=== PATIENT | female | born 1960 | race African-American/Black ===

== ENCOUNTER 2022-05-29 14:29 | Emergency (ER) | payer OTHER, SELFPAY ==
--- NOTE | ~2022-05-29 | CT_ITS ---
EXAMINATION: CT HEAD WITHOUT CONTRAST (STROKE PROTOCOL) CLINICAL INFORMATION: Stroke protocol. Aphasia, altered mental status. COMPARISON: CT had noncontrast 04/24/2013 TECHNIQUE: Contiguous axial imaging was performed from the skull base to vertex without intravenous administration of contrast. Additional 2-D coronal and sagittal reformatted images are generated on the CT workstation and uploaded to PACS. This CT examination was performed using dose optimization techniques as appropriate, variously including the following: *Automated exposure control *Adjustment of mA and/or kV according to patient size (this includes techniques or standardized protocols for targeted exams where dose is matched to indication/reason for exam; i.e. extremities or head) *Use of iterative reconstruction technique DLP: 1000 445 mGy-cm FINDINGS: There is moderate left subdural hematoma with mixed acute and older blood products overlying the left cerebral hemisphere. The hematoma measured on coronal images is approximately 1.6 cm in thickness. There is compression of the left lateral ventricle with subfalcine herniation of approximately 1.2 cm. There is no hydrocephalus. There is also areas of acute hemorrhage at the right vertex adjacent to the falx, along the left tentorium, and along the floor left middle cranial fossa. No intraventricular hemorrhage or definite intraparenchymal hemorrhage. The dorado-white matter differentiation appears normal. There is no visible acute territorial infarct or mass lesion. There is enlarged empty sella. No sellar or suprasellar mass. No erosion or hyperostosis. The calvarium appears intact. There is no pneumocephalus or orbital emphysema. The visualized sinuses and middle ears and mastoid air cells show no significant mucosal thickening. There are no air-fluid levels. Results are called and discussed with Dr. Jami Casey in the emergency department at [address]/CT head for stroke IMPRESSION: 1. Moderate left subdural hematoma with mixed acute and older blood products, 1.6 cm thickness. 2. Mass effect with subfalcine herniation of approximately 1.2 cm. No hydrocephalus. 3. Additional areas of acute hemorrhage right vertex, along the left tentorium, and along the floor left middle cranial fossa.
--- NOTE | 2022-05-29 14:33 | ECG_ITS ---
Test Reason : STROKE Blood Pressure : / mmHG Vent. Rate : 080 BPM Atrial Rate : 080 BPM P-R Int : 156 ms QRS Dur : 072 ms QT Int : 392 ms P-R-T Axes : 064 008 041 degrees QTc Int : 452 ms Normal sinus rhythm Possible Left atrial enlargement Borderline ECG When compared with ECG of 26-APR-2013 09:39, No significant change was found Referred By: Jami Casey Electronically Signed By:MIRZA CAMARGO
--- NOTE | 2022-05-29 14:38 | ED.AMS ---
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 and appeared to be confused, fast ED score by EMS was 1 and on my evaluation here in the emergency room there is a possibility of maybe some aphasia but otherwise NIH is negative. Related Data Allergies Allergy/AdvReac Type Severity Reaction Status Date / Time No Known Allergies Allergy Unverified 01/18/20 16:24 [No Known Allergies*] Review of Systems Review of Systems: Pertinent positives and negatives as stated in HPI PMFSH Past Medical History Source: nursing notes reviewed Social History Social History Alcohol intake: never Smoked in Last 30 Days: No Use of substances other than those prescribed or required for medical reasons: No Advance Directives: No Advance Directives Information Provided: No Physical Exam ED Vital Signs: Vital Signs - 24 hr 05/29/22 14:51 05/29/22 15:05 Temperature 99.2 F Pulse Rate 80 83 Respiratory Rate 18 15 Blood Pressure 173/73 H 128/72 Pulse Oximetry 94 95 Oxygen Delivery Method Room Air Room Air BMI result Body Mass Index 32.6 VITAL SIGNS: Reviewed. GENERAL: Well developed, well nourished, in no acute distress. HEAD: Normocephalic/atraumatic EYES: PERRLA, EOMI EARS: Ext canals without abnormality OROPHARYNX: no oral lesions noted, posterior pharynx clear LUNGS: Normal breath sounds. No adventitious sounds or accessory muscle use. CARDIOVASCULAR: Regular rate and rhythm without noted murmurs, no JVD or lower extremity edema. ABDOMEN: Soft, non-tender, non-distended with bowel sounds. MUSCULOSKELETAL: No tenderness, deformities, or effusions noted on gross inspection. EXTREMITIES: No cyanosis, clubbing or edema. SKIN: Inspection of the skin reveals no rashes NEUROLOGIC: Alert and oriented x 4. Strength and sensation to light touch were grossly intact x 4. NIH Stroke Scale Internal: Initial- Upon Arrival Level of Consciousness: Alert Level of Consciousness Questions: Answers both questions correctly Level of Consciousness Commands: Performs both tasks correctly Best Gaze: Normal Visual: No visual loss Facial Palsy: Normal Motor Arm (Right): No drift Motor Arm (Left): No drift Motor Leg (Right): No drift Motor Leg (Left): No drift Limb Ataxia: Absent Sensory: Normal Best Language: Mild to moderate aphasia Dysarthia: Normal Extinction and Inattention: No abnormality Score: 1 Medical Decision Making Medical Decision Making [facility] Narrative: 62-year-old female with presentation that appears to be somewhat delirium in nature but unclear whether not a component of aphasia, so decision made to perform CT of the head. 1446: I was called over to the CT scanner and patient has obvious acute on chronic subdural with midline shift likely explaining her current presentation. [facility] is called and images pushed over via [facility]. 1500: On re-evaluation, patient has noted left lid droop as well as Flattening over the left nasal labial fold and slight left down turning of mouth corner. Blood pressure is under control at this time and patient will not be placed on blood pressure medication drip. Differential Diagnosis Differential Diagnoses: The differential diagnosis associated with the presentation includes Please see the discussion above Consult Healthcare Provider Management of the patient was discussed with: [facility] 1448: Spoke with [facility] and recommended that ICU and/or neuro surgery should be contacted regarding these findings. 1450: Rads report acute on chronic subdural with 10-12mm midline shift, acute left tentorium bleeding, right falc bleeding 1518: Gal Palumbo recommend Ed to ED with suspect to OR, Q1H neuro checks. I did inform that patient now has LEFT lid droop and left mouth corner droop 1520: Dr. Bojorquez with, ED physician is accepting transfer for further evaluation of subdural bleeding. Lab Data [facility] Lab Attestation statement: I reviewed the patient's lab results. Please see discussion above 05/29/22 14:59 05/29/22 14:59 Labs: Lab Results 05/29/22 05/29/22 05/29/22 Range/Units 14:33 14:51 14:59 WBC 4.7 L (4.8-10.8) X10*3/uL RBC 4.96 (4.20-5.50) X10*6/uL Hgb 13.5 (12.0-16.0) g/dl Hct 41.1 (37.0-47.0) % MCV 82.9 (80.0-98.0) fL MCH 27.2 (27.0-33.0) pg MCHC 32.8 (31.0-35.0) g/dl RDW 14.8 (11.0-16.0) % Plt Count 189 (160-400) X10*3/uL MPV 11.6 (9.4-12.3) fL Immature Gran % (Auto) 0.4 (0.0-0.4) % Neut % (Auto) 72.6 (45-73) % Lymph % (Auto) 20.4 (20-40) % Riley % (Auto) 6.0 (2-11) % Eos % (Auto) 0.4 (0-4) % Baso % (Auto) 0.2 (0-2) % Lymph # (Auto) 1.0 L (1.2-4.9) X10*3/uL Riley # (Auto) 0.3 (0.1-1.2) X10*3/uL Eos # (Auto) 0.0 (0.0-0.4) X10*3/uL Baso # (Auto) 0.0 (0.0-0.2) X10*3/uL Abs Immat Gran (auto) 0.02 (0.00-0.03) X10*3/uL Absolute Neuts (auto) 3.4 (2.0-8.3) x10*3/uL Absolute Nucleated RBC 0.000 (0.0-0.012) X10*3/uL Nucleated RBC % (auto) 0.0 (0.0-0.2) /100WBC PT (10.0-13.1) SEC Whole Blood PT 11.8 (11.1-13.5) sec INR (0.9-1.1) Whole Blood INR 1.0 (0.9-1.1) APTT (26.0-36.4) SEC POC Glucose 144 H (60-115) mg/dL 05/29/22 Range/Units 14:59 WBC (4.8-10.8) X10*3/uL RBC (4.20-5.50) X10*6/uL Hgb (12.0-16.0) g/dl Hct (37.0-47.0) % MCV (80.0-98.0) fL MCH (27.0-33.0) pg MCHC (31.0-35.0) g/dl RDW (11.0-16.0) % Plt Count (160-400) X10*3/uL MPV (9.4-12.3) fL Immature Gran % (Auto) (0.0-0.4) % Neut % (Auto) (45-73) % Lymph % (Auto) (20-40) % Riley % (Auto) (2-11) % Eos % (Auto) (0-4) % Baso % (Auto) (0-2) % Lymph # (Auto) (1.2-4.9) X10*3/uL Riley # (Auto) (0.1-1.2) X10*3/uL Eos # (Auto) (0.0-0.4) X10*3/uL Baso # (Auto) (0.0-0.2) X10*3/uL Abs Immat Gran (auto) (0.00-0.03) X10*3/uL Absolute Neuts (auto) (2.0-8.3) x10*3/uL Absolute Nucleated RBC (0.0-0.012) X10*3/uL Nucleated RBC % (auto) (0.0-0.2) /100WBC PT 11.8 (10.0-13.1) SEC Whole Blood PT (11.1-13.5) sec INR 1.0 (0.9-1.1) Whole Blood INR (0.9-1.1) APTT 33.1 (26.0-36.4) SEC POC Glucose (60-115) mg/dL Independent Interpretation I performed an independent interpretation of an: EKG Interpretation: Review was sinus rhythm, HR-80, AK/QRS/QTC is within normal limits, no STEMI Radiology Impression Radiologist Impression: For interpretation is in agreement with radiology's impression of imaging study. Chronic Conditions Patient?s care impacted by: Diabetes Critical Care Time Critical Care Time Critical Care Time: Yes Total Critical Care Time: 60 Attestation: I personally attest to this time spent taking care of the patient. Discharge Plan Discharge Clinical Impression: Chronic subdural hematoma, Nontraumatic acute subdural hemorrhage Patient Disposition: Xfer [facility] Transfer Details: Acute on chronic subdural bleed with midline shift 10-12 mm
--- NOTE | 2022-05-29 14:45 | PC.NURSE ---
attempt to call - cell phone is off
--- NOTE | 2022-05-29 14:49 | MHC.EDTECH ---
@[phone] called [facility] transfer line per request of Dr. Casey. Gave patient demographics to the person on the phone. The individual then requested to speak with Dr. Casey. Dr. Casey took the call right away.
[2022-05-29 14:51] VITALS: BP 170/110; BP 173/73; PULSE 70; PULSE 80; RESP 18; O2SAT 94; O2SAT 97; BMI 32.6
[2022-05-29 15:04] LABS: Glucose, Whole Blood 144 mg/dL (60-115)
[2022-05-29 15:05] VITALS: BP 128/72; PULSE 83; RESP 15; TEMP 37.3; O2SAT 95
[2022-05-29 15:06] LABS: MANUAL DIFF FLAG NO
[2022-05-29 15:10] LABS: Basophils Percent Auto 0.2 % (0-2); Eosinophils Percent Auto 0.4 % (0-4); Hematocrit 41.1 % (37.0-47.0); Hemoglobin 13.5 g/dl (12.0-16.0); Imm Gran Abs Auto 0.02 X10*3/uL (0.00-0.03); Imm Gran Pct Auto 0.4 % (0.0-0.4); Lymphocytes Percent Auto 20.4 % (20-40); Mean Corpuscular HGB Conc 32.8 g/dl (31.0-35.0); Mean Corpuscular Hemoglobin 27.2 pg (27.0-33.0); Mean Corpuscular Volume 82.9 fL (80.0-98.0); Mean Platelet Volume 11.6 fL (9.4-12.3); Monocytes Absolute Auto 0.3 X10*3/uL (0.1-1.2); Neutrophils Absolute Auto 3.4 x10*3/uL (2.0-8.3); Neutrophils Percent Auto 72.6 % (45-73); Platelet Count 189 X10*3/uL (160-400); Red Blood Count 4.96 X10*6/uL (4.20-5.50); Red Cell Distribution Width 14.8 % (11.0-16.0); White Blood Count 4.7 X10*3/uL (4.8-10.8)
[2022-05-29 15:15] LABS: Prothrombin Time 11.8 SEC (10.0-13.1)
[2022-05-29 15:17] LABS: Partial Thromboplastin Time 33.1 SEC (26.0-36.4)
[2022-05-29 15:18] LABS: Stroke Lab Use COMPLETE
[2022-05-29 15:22] LABS: Prothrombin Time Whole Bld POC 11.8 sec (11.1-13.5)
[2022-05-29 15:27] LABS: COVID-19 Test Negative (Negative); IDNOW Serial# 6674DD1D
[2022-05-29 15:30] LABS: Anion Gap 14 (12-20); Blood Urea Nitrogen 14 mg/dL (9-16); Calcium 9.8 mg/dL (8.4-10.2); Carbon Dioxide 27 mmol/L (22-29); Chloride 103 mmol/L (96-108); Creatinine Clr Calc Pharmacy 89.8; Estimated Glomerular Filt Rate > 60; Glucose Random 138 mg/dL (60-115); Potassium 3.9 mmol/L (3.3-5.1); Sodium 140 mmol/L (135-145); Troponin-I High Sensitivity < 3.5 ng/L (<3.5-17.0)
[2022-05-29 15:46] VITALS: BP 144/86; PULSE 75; RESP 20; O2SAT 96
--- NOTE | 2022-05-29 15:47 | PC.NURSE ---
2.5mg Labetalol held at this time as pt SBP in range desired by [facility] - 144/86
--- NOTE | 2022-05-29 15:52 | PC.NURSE ---
pt leaving [facility] with [facility] a [phone]
--- NOTE | 2022-05-29 15:55 | PC.NURSE ---
attempted to call nurse to nurse report to [facility] - no answer
== END 2022-05-29 15:59 | disposition short-term general hospital (02) ==
PROVIDERS: Emergency Provider Student in an Organized Health Care Education/Training Program
DX: I62.01 Nontraumatic acute subdural hemorrhage (principal); I62.03 Nontraumatic chronic subdural hemorrhage; R47.01 Aphasia; R29.701 NIHSS score 1; E11.9 Type 2 diabetes mellitus without complications; Z20.822 Contact with and (suspected) exposure to COVID-19
CPT/HCPCS: 36415; 70450; 80048; 82550; 82947; 84484; 85025; 85610; 85730; 87635; 93005; 99285